=== PATIENT | female | born 1970 | race Caucasian/White ===

== ENCOUNTER 2016-06-08 12:05 | Emergency (ER) | payer SELFPAY ==
--- NOTE | 2016-06-08 12:20 | DR.GENAD ---
HPI - PCP Primary Care Physician: aidan Valentine HPI Comment HPI Comment: PATIENT HAVE HISTORY OF CAD S/P CABG HERE WITH SUBSTERNAL CHEST PRESSURE NON RADIATING PAIN. SHE WAS AT THE COURT HOUSE DOING JURY DUTY WHEN PAIN STATED. PAIN ASSOCIATED WITH SOB. PAIN INTERMITTENT LASTING LESS THAN 5 MINUTES. ASPIRING GIVEN IN THE AMBULANCE. CURRENTLY NO CHEST PAIN. - Complaint/Symptoms Chief Complaint Doctors Comments: CHEST PAIN Chief Complaint:: patient stated she was at the court house for jury duty when she started having chest pains. Self Treatment fo Chief Complaint: ems gave asa - Nurses notes reviewed Nurses Notes Review: Yes - Source History Provided: Patient - Mode of Arrival Mode of Arrival: EMS - Timing Onset of Chief Complaint: 06/08/16 Came on: Suddenly - Duration Duration: Intermittent Duration: Minutes - Severity Severity: Moderate PMH - PMH Past Medical History: Yes Past Medical History: [place], Coronary Artery Disease, Hypertension, Dyslipidemia Past Surgical History: Yes Surgical History: , CABG/Valve Surgery, Ortho Surgery - Family History History of Family Medical Conditions: Yes Family Medical History: [place], Coronary Artery Disease, Hypertension - Social History Does patient currently use any type of tobacco product: Yes Have you used tobacco products in the last 12 months: Yes Type of Tobacco Use: Cigarettes How many years tobacco product used: 30 Does any household member use tobacco: No Alcohol Use: None Do you use any recreational Drugs:: Yes (thc) Lives With: Family Lives Where: Home - infectious screening In the last 2 months have you had wt loss of >10#?: NO Have you had fever, night sweats or hemotysis?: No Have you traveled outside the country in the last 6 months?: No Isolation: Standard ROS - Review of Systems Constitutional: No Symptoms Reported Eyes: No Symptoms Reported ENTM: No Symptoms Reported Respiratoy: No Symptoms Reported Cardiovascular: Chest Pain Gastrointestinal/Abdominal: No Symptoms Reported Genitourinary: No Symptoms Reported Neurological: No Symptoms Reported Musculoskeletal: No Symptoms Reported Integumentary: No Symptoms Reported Hematologic/Lymphatic: No Symptoms Reported Endocrine: No Symptoms Reported All Other Systems: Reviewed and Negative PE - Vital Signs Vitals: Temperature 98.7 F Pulse Rate 18 Respiratory Rate 16 Blood Pressure [Right Arm] 173/102 Blood Pressure 230/114 O2 Sat by Pulse Oximetry 100 - General Limitations: No Limitations General Appearance: Alert - Head Head Exam: Normal Inspection - Eyes Eye exam: Normal Appearance - ENT ENT Exam: Normal External Ear Exam External Ear Exam: Normal External Inspection TM/Canal Exam: Bilateral Normal Nose Exam: Normal Nose Exam Mouth Exam: Normal Inspection Throat Exam: Normal Inspection - Neck Neck Exam: Normal Inspection - Chest Chest Inspection: Symmetric Chest Wall Rise - Respiratory Respiratory Exam: Normal Lung Sounds Bilat Respiratory Exam: Bilateral Rhonchi, Lower Rhonchi - Cardiovascular Cardiovascular Exam: Regular Rate, Normal Rhythm, Normal Heart Sounds - Abdominal Exam Abdominal Exam: Normal Bowel Sounds, Soft. negative: Tenderness - Extremities Extremities Exam: Normal Inspection - Back Back Exam: Normal Inspection - Neurologic Neurological Exam: Alert, Oriented X3 - Psychiatric Psychiatric Exam: Anxious - Skin Skin Exam: Normal Color MDM - Additional Information Additional Information Obtained From: Family - Differential Diagnosis Differential Diagnosis: CHEST PAIN, HYPERTENSION, CAD Course - Treatment Treatment: SEE ORDERS. - Education/Counseling Education/Counseling: Patient, Family, Education Educated On: Diagnosis ROR - Labs Reviewed Laboratory Results Reviewed?: Yes Result Diagrams: 06/09/16 04:05 06/08/16 12:29 - XRAY XRAY Interpreted by: Radiologist XRAY Findings: REPORT DISCUSS WITH PATIENT. - EKG Rhythm: NSR (EKG NOTED) - Diagnosis Discharge Problem: Chest pain Qualifiers: Chest pain type: precordial pain Qualified Code(s): R07.2 - Precordial pain Hypertension Qualifiers: Hypertension type: essential hypertension Qualified Code(s): I10 - Essential ( primary) hypertension CAD (coronary artery disease) Qualifiers: Coronary Disease-Associated Artery/Lesion type: unspecified vessel or lesion type [place] vs. transplanted heart: unspecified whether [place] or transplanted heart Associated angina: with unspecified angina Qualified Code(s): I25.119 - Atherosclerotic heart disease of [place]inez coronary artery with unspecified angina pectoris - Discharge Plan Disposition: ADMITTED INPATIENT Condition: Stable - Follow ups/Referrals - Instructions
[2016-06-08 12:42] LABS: BASOPHILS % (AUTO) 0.6 % (0.2-1.0); EOSINOPHILS # (AUTO) 0.2 x10^3/uL (0.0-0.2); EOSINOPHILS % (AUTO) 2.7 % (0.9-2.9); HEMATOCRIT 45.7 % (36.0-47.0); HEMOGLOBIN 15.5 g/dL (12.0-16.0); LYMPHOCYTES # (AUTO) 2.5 X10^3/uL (1.3-2.9); LYMPHOCYTES % (AUTO) 34.8 % (21.0-51.0); MEAN CORPUSCULAR HEMOGLOBIN 31.2 pg (27.0-34.0); MEAN CORPUSCULAR HGB CONC 33.8 g/dL (33.0-35.0); MEAN CORPUSCULAR VOLUME 92.2 fL (80.0-100.0); MEAN PLATELET VOLUME 7.9 fL (7.4-11.0); MONOCYTES # (AUTO) 0.8 x10^3/uL (0.3-0.8); NEUTROPHILS # (AUTO) 3.6 x10^3/uL (2.2-4.8); NEUTROPHILS % (AUTO) 50.9 % (42.0-75.0); PLATELET COUNT 278 X10^3/uL (150.0-450.0); RED BLOOD COUNT 4.96 X10^6/uL (3.5-5.4); RED CELL DISTRIBUTION WIDTH 14.1 % (11.6-16.5); WHITE BLOOD COUNT 7.1 X10^3/uL (3.6-10.0)
[2016-06-08 12:54] LABS: BLOOD UREA NITROGEN 10 mg/dL (7-18); CALCIUM 8.9 mg/dL (8.5-10.1); CARBON DIOXIDE 25.7 mmol/L (21-32); CHLORIDE 103 mmol/L (98-107); GLUCOSE 72 mg/dL (65-99); SODIUM 138 mmol/L (136-145); TROPONIN I < 0.02 ng/mL (0-1.5); eGFR BLACK RACES > 60 (>60); eGFR NON BLACK RACES > 60 (>60)
[2016-06-08 12:58] LABS: ALANINE AMINOTRANSFERASE 27 Units/L (12-78); ALBUMIN 3.9 g/dL (3.4-5.0); ALKALINE PHOSPHATASE 87 Units/L (46-116); ASPARTATE AMINO TRANSFERASE 32 Units/L (15-37); CKMB % 1.2 % (<4); CREATINE KINASE 197 Units/L (26-192); CREATINE KINASE MB 2.4 ng/mL (0-4.0); MAGNESIUM 1.9 mg/dL (1.7-2.9)
[2016-06-08] MEDS ORDERED: TOPROL XL PO SCH (13:00)
--- NOTE | 2016-06-08 13:06 | RAD ---
HISTORY: Chest pain and back pain Study: Single-view chest Comparison: December 05, 2015 Findings: Prior sternotomy. The trachea is midline. The cardiac silhouette is unremarkable. The lungs are cl ear without focal mass or consolidation. There is no effusion or pneumothorax. The bony thorax is grossly unremarkable. IMPRESSION: No acute cardiopulmonary disease. Reported By:
[2016-06-08 13:16] LABS: D DIMER 744 ng/mL (0-400)
[2016-06-08] MEDS ORDERED: MORPHINE SULFATE INJ 2 MG IVP PRN (13:53)
[2016-06-08] MEDS ORDERED: NITROSTAT SL PRN (13:53)
[2016-06-08] MEDS ORDERED: ZOFRAN INJ 4 MG VIAL IVP PRN (13:58)
[2016-06-08] MEDS: COZAAR PO SCH (15:00)
[2016-06-08] MEDS: PEPCID 20 MG IV PREMIX* 20 MG/50 ML BAG IV SCH ×2 (16:32→20:37)
[2016-06-08] MEDS: NICODERM PATCH 21 MG/24 HR TD SCH (16:32)
[2016-06-08] MEDS: NS 1000 ML 1,000 ML IV SCH (16:32)
[2016-06-08] MEDS ORDERED: PREVNAR 13 IM ONE (17:12)
[2016-06-08 17:33] VITALS: BMI 23.9
[2016-06-08 19:21] LABS: CKMB % 1.2 % (<4); CREATINE KINASE 169 Units/L (26-192); TROPONIN I < 0.02 ng/mL (0-1.5)
[2016-06-09 01:50] LABS: CKMB % 1.1 % (<4); CREATINE KINASE 131 Units/L (26-192); CREATINE KINASE MB 1.4 ng/mL (0-4.0); TROPONIN I < 0.02 ng/mL (0-1.5)
[2016-06-09] MEDS: NS 1000 ML 1,000 ML IV SCH (03:26)
[2016-06-09 05:24] LABS: BASOPHILS % (AUTO) 0.4 % (0.2-1.0); EOSINOPHILS # (AUTO) 0.3 x10^3/uL (0.0-0.2); EOSINOPHILS % (AUTO) 4.1 % (0.9-2.9); HEMATOCRIT 41.6 % (36.0-47.0); LYMPHOCYTES # (AUTO) 3.1 X10^3/uL (1.3-2.9); LYMPHOCYTES % (AUTO) 48.1 % (21.0-51.0); MEAN CORPUSCULAR HEMOGLOBIN 30.6 pg (27.0-34.0); MEAN CORPUSCULAR HGB CONC 33.6 g/dL (33.0-35.0); MEAN CORPUSCULAR VOLUME 91.2 fL (80.0-100.0); MEAN PLATELET VOLUME 8.2 fL (7.4-11.0); MONOCYTES # (AUTO) 0.6 x10^3/uL (0.3-0.8); MONOCYTES % (AUTO) 9.8 % (0.0-13.0); NEUTROPHILS # (AUTO) 2.4 x10^3/uL (2.2-4.8); NEUTROPHILS % (AUTO) 37.6 % (42.0-75.0); PLATELET COUNT 247 X10^3/uL (150.0-450.0); RED BLOOD COUNT 4.56 X10^6/uL (3.5-5.4); WHITE BLOOD COUNT 6.3 X10^3/uL (3.6-10.0)
[2016-06-09 05:34] LABS: ALANINE AMINOTRANSFERASE 22 Units/L (12-78); ALBUMIN 3.1 g/dL (3.4-5.0); ALKALINE PHOSPHATASE 66 Units/L (46-116); ASPARTATE AMINO TRANSFERASE 22 Units/L (15-37); BLOOD UREA NITROGEN 9 mg/dL (7-18); CALCIUM 8.2 mg/dL (8.5-10.1); CARBON DIOXIDE 22.2 mmol/L (21-32); CHLORIDE 109 mmol/L (98-107); CHOLESTEROL 253 mg/dL (0-200); COR CA(FOR HYPOALB) 8.9 mg/dL (8.5-10.1); CREATININE 0.81 mg/dL (0.55-1.02); GLUCOSE 79 mg/dL (65-99); HDL CHOLESTEROL 42 mg/dL (40-60); SODIUM 142 mmol/L (136-145); TOTAL PROTEIN 6.5 g/dL (6.4-8.2); TRIGLYCERIDES 42 mg/dL (0-150); eGFR BLACK RACES > 60 (>60); eGFR NON BLACK RACES > 60 (>60)
[2016-06-09] MEDS ORDERED: POTASSIUM CHLORIDE LIQ 20 MEQ UDC PO PRN (06:37)
[2016-06-09] MEDS ORDERED: K-DUR TAB 20 MEQ PO PRN (06:37)
[2016-06-09] MEDS ORDERED: K-LYTE EFFERVESCENT PO PRN (06:37)
[2016-06-09] MEDS ORDERED: K-RIDER 10 MEQ/NS 100 ML 10 MEQ/100 ML BAG IV PRN (06:37)
[2016-06-09] MEDS: NICODERM PATCH 21 MG/24 HR TD SCH (08:17)
[2016-06-09] MEDS: COZAAR PO SCH (08:17)
[2016-06-09] MEDS: PEPCID 20 MG IV PREMIX* 20 MG/50 ML BAG IV SCH (08:18)
[2016-06-09] MEDS ORDERED: [UNRECOGNIZED DRUG - OTHER] PO SCH (09:00)
[2016-06-09] MEDS ORDERED: LOPRESSOR TAB 50 MG PO SCH (09:00)
[2016-06-09] MEDS ORDERED: ASPIRIN PO SCH (09:00)
[2016-06-09] MEDS ORDERED: TOPROL XL PO SCH (09:00)
[2016-06-09] MEDS ORDERED: COZAAR PO SCH (09:00)
[2016-06-09] MEDS ORDERED: FLONASE NASAL SPRAY ENOSTRIL SCH (10:00)
[2016-06-09 10:35] VITALS: BP 183/86
[2016-06-09] MEDS ORDERED: PREVNAR 13 IM ONE (10:49)
== END 2016-06-09 11:00 | disposition home or self-care (01) ==
LOC: ER 12:05 → MED/SURG 14:15
PROVIDERS: ADMIT Obstetrics & Gynecology Obstetrics; ATTEND Obstetrics & Gynecology Obstetrics
PROC: 3E0234Z Introduction of Serum, Toxoid and Vaccine into Muscle, Percutaneous Approach (ICD-10-PCS; principal; 2016-06-09)
DX: R07.89 Other chest pain (principal); I25.119 Atherosclerotic heart disease of native coronary artery with unspecified angina pectoris; I10 Essential (primary) hypertension; R06.02 Shortness of breath; R07.2 Precordial pain; M54.89 Other dorsalgia; E78.01 Familial hypercholesterolemia; R94.4 Abnormal results of kidney function studies; Z23 Encounter for immunization
CPT/HCPCS: 36415; 71010; 80053; 80061; 82550; 82553; 83735; 84132; 84484; 85025; 85378; 85610; 85730; 93005; 93010; 94760; 96365; 99284; A4222; S0028; 90670; G0378

== ENCOUNTER 2016-12-13 21:00 | Emergency (ER) | payer SELFPAY ==
[2016-12-13] MEDS ORDERED: NITROSTAT SL ONE (21:03)
[2016-12-13] MEDS ORDERED: ASPIRIN PO STA (21:09)
[2016-12-13] MEDS: NITROSTAT SL PRN ×2 (21:10→21:15)
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
[2016-12-13 21:19] VITALS: BMI 24.7
[2016-12-13 21:21] LABS: BASOPHILS # (AUTO) 0.1 X10^3/uL (0.0-0.1); BASOPHILS % (AUTO) 0.6 % (0.2-1.0); EOSINOPHILS # (AUTO) 0.3 x10^3/uL (0.0-0.2); HEMATOCRIT 43.2 % (36.0-47.0); HEMOGLOBIN 14.9 g/dL (12.0-16.0); LYMPHOCYTES # (AUTO) 1.9 X10^3/uL (1.3-2.9); LYMPHOCYTES % (AUTO) 15.2 % (21.0-51.0); MEAN CORPUSCULAR HEMOGLOBIN 31.5 pg (27.0-34.0); MEAN CORPUSCULAR HGB CONC 34.4 g/dL (33.0-35.0); MEAN CORPUSCULAR VOLUME 91.5 fL (80.0-100.0); MEAN PLATELET VOLUME 7.5 fL (7.4-11.0); MONOCYTES # (AUTO) 0.8 x10^3/uL (0.3-0.8); MONOCYTES % (AUTO) 6.6 % (0.0-13.0); NEUTROPHILS # (AUTO) 9.7 x10^3/uL (2.2-4.8); NEUTROPHILS % (AUTO) 75.6 % (42.0-75.0); PLATELET COUNT 365 X10^3/uL (150.0-450.0); RED BLOOD COUNT 4.72 X10^6/uL (3.5-5.4); RED CELL DISTRIBUTION WIDTH 14.5 % (11.6-16.5); WHITE BLOOD COUNT 12.8 X10^3/uL (3.6-10.0)
[2016-12-13] MEDS ORDERED: ASPIRIN ONE (21:24)
[2016-12-13 21:51] LABS: BLOOD UREA NITROGEN 11 mg/dL (7-18); CALCIUM 9.7 mg/dL (8.5-10.1); CHLORIDE 97 mmol/L (98-107); COR NA(FOR HYPERGLY) 133 mmol/L (136-145); CREATININE 1.12 mg/dL (0.55-1.02); SODIUM 132 mmol/L (136-145); TROPONIN I < 0.02 ng/mL (0-1.5); eGFR BLACK RACES > 60 (>60); eGFR NON BLACK RACES 55 (>60)
[2016-12-13] MEDS ORDERED: NS 1000 ML 1,000 ML ONE (21:57)
[2016-12-13] MEDS ORDERED: NS 1000 ML 1,000 ML IV SCH (22:00)
--- NOTE | 2016-12-13 22:04 | RAD ---
Indication: Pain. Exam: Portable chest. Comparison: 06/08/2016 Findings: The heart is normal. The pulmonary vessels are normal. Postop changes are seen along the me diastinum and sternum. No consolidation or effusion is seen. Impression: Stable chest with no acute abnormality seen. Reported By:
[2016-12-13 22:05] LABS: ALANINE AMINOTRANSFERASE 21 Units/L (12-78); ALKALINE PHOSPHATASE 84 Units/L (46-116); ASPARTATE AMINO TRANSFERASE 20 Units/L (15-37); CREATINE KINASE 103 Units/L (26-192); MAGNESIUM 1.6 mg/dL (1.7-2.9); TOTAL PROTEIN 7.8 g/dL (6.4-8.2)
[2016-12-13] MEDS ORDERED: ATIVAN INJ 2 MG VIAL IVP ONE (22:24)
[2016-12-13] MEDS ORDERED: ATIVAN INJ 2 MG VIAL ONE (22:25)
[2016-12-13 22:31] LABS: CKMB % 1.2 % (<4); CREATINE KINASE MB 1.2 ng/mL (0-4.0)
[2016-12-13 22:55] VITALS: BP 149/89
== END 2016-12-13 22:50 | disposition home or self-care (01) ==
LOC: ER 21:00
DX: F43.0 Acute stress reaction (principal)
CPT/HCPCS: 36415; 71010; 80053; 82550; 82553; 83735; 84484; 85025; 85610; 93005; 93010; 96365; 96374; 99282; 99283; A4222; J2060

== ENCOUNTER 2016-12-14 10:25 | Emergency (ER) | payer SELFPAY ==
[2016-12-14] MEDS ORDERED: LOPRESSOR INJ 5 MG AMP ONE (10:29)
--- NOTE | 2016-12-14 10:36 | DR.CA ---
HPI - Time Seen Time seen: 10:35 - HPI Comment HPI Comment: PATIENT HERE IN FULL CARDIAC ARREST INTUBATED AND BEING RESCICITED ACCORDING TO ACLS PROTOCOL. PATIENT WAS IN V FIB AND WAS SHOCK TWICE. EPI GIVEN IV. IN ED, WEAK PULSE. ONE EPI GIVEN. WAS EVALUATED IN ED LAST NIGHT FOR CHEST PAIN. - Complaint Chief Complaint Doctor Comments: CARDIAC ARREST, [place] PATIENT WAS HAVING CHEST PAIN. - Reviewed Nurses Notes Review: Yes - Source History Provided: Significant Other, EMS - Mode of arrival Mode of Arrival: Stretcher - Context Onset: At Rest History R/T Cardiac Arrest: None Prehospital Care: Initial Rhythm: Ventricular Fibrillation Prehospital: Treatment: CPR, Intubation, Defribrillation, IV, Epinephrine Prehospital: Response to Treatment: Sustained Return of Pulse (AFTER SECOND DEFRIBILLATION.) - Associated Signs and Symptoms Associated Signs and Symptoms: Chest Pain PMH - PMH Past Medical History: [place], Coronary Artery Disease, Hypertension, Dyslipidemia Past Surgical History: Yes Surgical History: , CABG/Valve Surgery, Ortho Surgery - Family History Family Medical History: [place], Coronary Artery Disease, Hypertension - Social History Do you use any recreational Drugs:: Yes (thc) ROS - Review of Systems Constitutional: Diaphoresis, Other (UNRESPONSIVE) Eyes: Other (PUPILS REACTIVE SLOWLY.) ENTM: No Symptoms Reported (NONE REPORTED PER ) Respiratoy: Short of Breath (PER .), Other (UNRESPONSIVE. ) Cardiovascular: Chest Pain (PER ) Gastrointestinal/Abdominal: negative: Nausea, Vomiting Genitourinary: Other (ON URINE IN ED AFTER [facility]) Neurological: Weakness (PER .), Dizziness Musculoskeletal: Other (UNRESPONSIVE) Integumentary: Other (FACE SLIGHTLY CYANOTIC.) Hematologic/Lymphatic: No Symptoms Reported (PER ) Unable to Obtain Due To: Altered mental status (UNRESPONSIVE), Intubated PE - Vitals Vital Signs: Temp Pulse Pulse Resp BP BP Pulse Ox 12/14/16 12:25 125 H 26 H 132/87 100 12/14/16 12:20 121 H 28 H 132/88 100 12/14/16 12:15 118 H 28 H 133/89 100 12/14/16 12:10 123 H 32 H 121/77 100 12/14/16 12:05 123 H 28 H 129/74 100 12/14/16 12:00 128 H 27 H 145/74 100 12/14/16 11:55 123 H 26 H 142/90 100 12/14/16 11:50 116 H 27 H 111/77 100 12/14/16 11:45 108 H 28 H 101/69 100 12/14/16 11:35 106 H 30 H 101/63 100 12/14/16 11:30 133 H 28 H 144/67 100 12/14/16 11:25 133 H 29 H 139/83 100 12/14/16 11:10 118 H 28 H 123/86 100 12/14/16 11:05 103 H 12 113/81 98 12/14/16 10:51 103 H 12 122/66 100 12/14/16 10:45 109 H 12 114/87 100 12/14/16 10:36 213/140 12/14/16 10:32 97 F L 45 L 88 15 219/165 213/140 100 12/14/16 10:26 83 12 12/13/16 22:53 149/89 149/89 - General Limitations: Altered Mental Status (UNRESPONSIVE) General Appearance: Other (UNRESPONSIVE) - Head Head Exam: Normal Inspection - Eyes Eye exam: PERRL (PUPILS REACTIVE TO LIGHT.) Eyes: Pupils: Reactive - ENT ENT Exam: Normal External Ear Exam - Airway Airway: Intubated ET tube placement confirmed by: ETCO2 Gag: Absent (INTUBATED AND UNRESPONSIVE) - Neck Neck Exam: Trachea Midline - Chest Chest Inspection: Symmetric Chest Wall Rise (WITH VENTILATION) Expanded Chest Exam: Other (NONE) - Respiratory Ventilation: Assisted Respiratory Exam: Other (INTUBATED) Respiratory Exam: Bilateral Rhonchi, Upper Rhonchi, Lower Rhonchi - Cardiovascular Cardiovascular Exam: Tachycardia - Abdominal Exam Abdominal Exam: Normal Bowel Sounds - Extremities Extremities Exam: Normal Inspection - Neurologic Neurological Exam: Other (UNRESPONSIVE) - Skin Skin Exam: Erythema - Diagnosis Discharge Problem: Cardiopulmonary arrest, Cerebral edema Acute [place] Qualifiers: Myocardial infarction ST status: non-ST elevation myocardial infarction Qualified Code(s): I21.4 - Non-ST elevation (NSTEMI) myocardial infarction - Discharge Plan Disposition: XFER SHT-TRM HOSP Condition: Stable - Follow ups/Referrals Follow ups/Referrals: DENNIS PICKARD [Primary Care Provider] - 3 days - Instructions MDM - Addition Information Additional Information Obtained From: Family - Differential Diagnosis Differential Diagnosis: Cardiopulmonary Arrest, Dysrhythmia, Myocardial Infarction, Respiratory Failure. negative: Electrolyte Disorder (PULMONARY EDEMA) Course - Consultation Consultation Comments: PATIENT ACCEPTED FOR TRANSFER BY , [facility]. - Education/Counseling Education/Counseling: Family ROR - Labs Reviewed Laboratory Results Reviewed?: Yes Result Diagrams: 12/14/16 10:30 12/14/16 10:30 Laboratory: WBC 15.8 X10^3/uL (3.6-10.0) H 12/14/16 10:30 RBC 4.81 X10^6/uL (3.5-5.4) 12/14/16 10:30 Hgb 14.9 g/dL (12.0-16.0) 12/14/16 10:30 Hct 45.8 % (36.0-47.0) 12/14/16 10:30 MCV 95.3 fL (80.0-100.0) 12/14/16 10:30 MCH 31.1 pg (27.0-34.0) 12/14/16 10:30 MCHC 32.6 g/dL (33.0-35.0) L 12/14/16 10:30 RDW 14.3 % (11.6-16.5) 12/14/16 10:30 Plt Count 270 X10^3/uL (150.0-450.0) 12/14/16 10:30 MPV 7.8 fL (7.4-11.0) 12/14/16 10:30 Neut % 45.9 % (42.0-75.0) 12/14/16 10:30 Lymph % 45.5 % (21.0-51.0) 12/14/16 10:30 [place] % 6.2 % (0.0-13.0) 12/14/16 10:30 Eos % 2.0 % (0.9-2.9) 12/14/16 10:30 Baso % 0.4 % (0.2-1.0) 12/14/16 10:30 Neut # 7.3 x10^3/uL (2.2-4.8) H 12/14/16 10:30 Lymph # 7.2 X10^3/uL (1.3-2.9) H 12/14/16 10:30 [place] # 1.0 x10^3/uL (0.3-0.8) H 12/14/16 10:30 Eos # 0.3 x10^3/uL (0.0-0.2) H 12/14/16 10:30 Baso # 0.1 X10^3/uL (0.0-0.1) 12/14/16 10:30 Absolute Nucleated RBC 0.1 /100WBC 12/14/16 10:30 INR Target Range - 12/14/16 11:20 INR 1.03 (0.8-1.3) 12/14/16 11:20 PTT 27.8 SECONDS (22.9-36.5) 12/14/16 11:20 PTT Comment - 12/14/16 11:20 D-Dimer 1050 ng/mL (0-400) H* 12/14/16 10:30 Sample Site Rra 12/14/16 11:53 ABG pH 7.280 (7.35-7.45) L 12/14/16 11:53 ABG pCO2 33.0 mmHg (35.0-45.0) L 12/14/16 11:53 ABG pO2 449.0 mmHg (80.0-100.0) H 12/14/16 11:53 ABG HCO3 15.5 mmol/L (22-26) L* 12/14/16 11:53 ABG O2 Saturation 100.0 % (90-100) 12/14/16 11:53 ABG Base Excess -10.2 mmol/L (-2.0-2.0) L 12/14/16 11:53 Masood Test Pos 12/14/16 11:53 A-a Gradient 223.0 mmHg 12/14/16 11:53 FiO2 100.000 12/14/16 11:53 Blood Gas Comments [place] well cs 12/14/16 11:53 Sodium 131 mmol/L (136-145) L 12/14/16 10:30 Corrected Sodium 134 mmol/L (136-145) L 12/14/16 10:30 Potassium 3.0 mmol/L (3.5-5.1) L* 12/14/16 10:30 Chloride 96 mmol/L (98-107) L 12/14/16 10:30 Carbon Dioxide 16.5 mmol/L (21-32) L 12/14/16 10:30 BUN 10 mg/dL (7-18) 12/14/16 10:30 Creatinine 1.26 mg/dL (0.55-1.02) H 12/14/16 10:30 Est GFR (MDRD) Af Amer 59 (>60) 12/14/16 10:30 Est GFR (MDRD) Non-Af 48 (>60) L 12/14/16 10:30 Glucose 223 mg/dL (65-99) H 12/14/16 10:30 POC Glucose (mg/dL) 246 mg/dL (65-99) H 12/14/16 11:25 Calcium 8.5 mg/dL (8.5-10.1) 12/14/16 10:30 Corrected Calcium 9.2 mg/dL (8.5-10.1) 12/14/16 10:30 Total Bilirubin 0.70 mg/dL (0.2-1.0) 12/14/16 10:30 AST 213 Units/L (15-37) H 12/14/16 10:30 ALT 48 Units/L (12-78) 12/14/16 10:30 Alkaline Phosphatase 71 Units/L (46-116) 12/14/16 10:30 Creatine Kinase 1439 Units/L (26-192) H 12/14/16 10:30 CK-MB (CK-2) 288.3 ng/mL (0-4.0) H* 12/14/16 10:30 CK/CKMB % Calc 20.0 % (<4) 12/14/16 10:30 Troponin I 19.60 ng/mL (0-1.5) H* 12/14/16 10:30 B-Natriuretic Peptide 667 pg/mL (0-79) H* 12/14/16 10:30 Total Protein 6.3 g/dL (6.4-8.2) L 12/14/16 10:30 Albumin 3.1 g/dL (3.4-5.0) L 12/14/16 10:30 Globulin 3.2 g/dL (2.5-4.5) 12/14/16 10:30 Albumin/Globulin Ratio 1.0 Ratio (1.1-2.1) L 12/14/16 10:30 Specimen Type Clean catch urine 12/14/16 12:12 Urine Color Yellow (YELLOW) 12/14/16 12:12 Urine Appearance Hazy (CLEAR) 12/14/16 12:12 Urine pH 6.0 (5.0 - 8.0) 12/14/16 12:12 Ur Specific [place] 1.025 (1.000-1.030) 12/14/16 12:12 Urine Protein 4+ (NEGATIVE) 12/14/16 12:12 Urine Glucose (UA) 3+ (NEGATIVE) 12/14/16 12:12 Urine Ketones 1+ (NEGATIVE) 12/14/16 12:12 Urine Occult Blood 5+ (NEGATIVE) 12/14/16 12:12 Urine Nitrite Negative (NEGATIVE) 12/14/16 12:12 Urine Bilirubin Negative (NEGATIVE) 12/14/16 12:12 Urine Urobilinogen 1+ (NORMAL) 12/14/16 12:12 Ur Leukocyte Esterase Negative (NEGATIVE) 12/14/16 12:12 Urine RBC 20-25 /HPF (NEGATIVE) 12/14/16 12:12 Urine WBC 2-5 /HPF (NEGATIVE) 12/14/16 12:12 Ur Squamous Epith Cells Many /HPF (NEGATIVE) 12/14/16 12:12 Amorphous Sediment Trace /HPF (NEGATIVE) 12/14/16 12:12 Urine Bacteria Trace /HPF (NEGATIVE) 12/14/16 12:12 Hyaline Casts Moderate /LPF (NEGATIVE) 12/14/16 12:12 Ur Culture Indicated? No/not indicated 12/14/16 12:12 - XRAY XRAY Interpreted by: Radiologist XRAY Findings: REPORT NOTED - EKG Rhythm: ST (REPORT NOTED)
[2016-12-14 10:40] VITALS: BMI 37.8
[2016-12-14] MEDS ORDERED: NITROGLYCERIN IV PREMIX 50 MG 50 MG/250 ML BAG IV PRN (10:45)
[2016-12-14] MEDS ORDERED: ADRENALINE CHL INJ (ABBOJECT) IVP ONE (10:45)
[2016-12-14] MEDS ORDERED: LOPRESSOR INJ 5 MG AMP IVP ONE (10:45)
[2016-12-14 10:52] LABS: BASOPHILS # (AUTO) 0.1 X10^3/uL (0.0-0.1); BASOPHILS % (AUTO) 0.4 % (0.2-1.0); EOSINOPHILS # (AUTO) 0.3 x10^3/uL (0.0-0.2); HEMATOCRIT 45.8 % (36.0-47.0); HEMOGLOBIN 14.9 g/dL (12.0-16.0); LYMPHOCYTES # (AUTO) 7.2 X10^3/uL (1.3-2.9); LYMPHOCYTES % (AUTO) 45.5 % (21.0-51.0); MEAN CORPUSCULAR HEMOGLOBIN 31.1 pg (27.0-34.0); MEAN CORPUSCULAR HGB CONC 32.6 g/dL (33.0-35.0); MEAN CORPUSCULAR VOLUME 95.3 fL (80.0-100.0); MEAN PLATELET VOLUME 7.8 fL (7.4-11.0); MONOCYTES % (AUTO) 6.2 % (0.0-13.0); NEUTROPHILS # (AUTO) 7.3 x10^3/uL (2.2-4.8); NEUTROPHILS % (AUTO) 45.9 % (42.0-75.0); PLATELET COUNT 270 X10^3/uL (150.0-450.0); RED BLOOD COUNT 4.81 X10^6/uL (3.5-5.4); RED CELL DISTRIBUTION WIDTH 14.3 % (11.6-16.5); WHITE BLOOD COUNT 15.8 X10^3/uL (3.6-10.0)
--- NOTE | 2016-12-14 10:56 | RAD ---
Examination: Portable AP chest History: Cardiac arrest, ET tube placement Comparison reference: 12/13/2016 Findings: Continued normal heart size with clear lungs. Detail is limited by overlying surface artifa cts. Endotracheal tube is in mid trachea, well above the toni. There is no evidence for pleural flu id, pneumothorax. There is gaseous distention of the stomach. Impression: Interval intubation. Gaseous dilatation of the stomach is consistent with recent intubati on procedure. Reported By:
--- NOTE | 2016-12-14 11:19 | CT ---
CT HEAD WITHOUT CONTRAST CLINICAL HISTORY: 46-year-old female, unresponsive following cardiac arrest on mechanical ventilation . COMPARISON: None. TECHNIQUE: Multiple axial CT images were obtained from the skull base to the cranial vertex without t he administration of contrast. FINDINGS: Diffuse, subtle loss of mendes-white with mild pattern of edema producing mild sulcal effacem ent without evidence of herniation. No evidence of abnormal intra- or extra axial fluid collections o r midline shift. The ventricular system is normal in size and morphology. The basal cisterns are norm al in appearance. Significant calcific atherosclerotic plaque within the cavernous segments of the in ternal carotid arteries and distal vertebral arteries. The paranasal sinuses, mastoid air cells, and tympanic cavities are clear. Partially imaged oral endo tracheal tube. IMPRESSION: Diffuse, subtle loss of mendes-white differentiation with associated edema without evidence of herniati on at this time. Recommend MR brain for complete evaluation. Reported By:
[2016-12-14] MEDS ORDERED: DIPRIVAN PREMIX 1 GM IV 1,000 MG/100 ML VIAL ONE (11:20)
[2016-12-14] MEDS ORDERED: NS 1000 ML 1,000 ML ONE ×2 (11:22→11:42)
[2016-12-14 11:30] LABS: ALBUMIN 3.1 g/dL (3.4-5.0); CALCIUM 8.5 mg/dL (8.5-10.1); CARBON DIOXIDE 16.5 mmol/L (21-32); COR CA(FOR HYPOALB) 9.2 mg/dL (8.5-10.1); CREATININE 1.26 mg/dL (0.55-1.02); TOTAL PROTEIN 6.3 g/dL (6.4-8.2)
[2016-12-14] MEDS ORDERED: VERSED ONE ×2 (11:35→12:06)
[2016-12-14] MEDS ORDERED: VERSED 100 MG in NS 100 ML IV 80 ML IV PRN ×2 (11:35→11:37)
[2016-12-14 11:37] LABS: CREATINE KINASE MB 288.3 ng/mL (0-4.0)
[2016-12-14] MEDS ORDERED: VERSED IVP ONE ×2 (11:37→12:12)
[2016-12-14 11:38] LABS: TROPONIN I 19.6 ng/mL (0-1.5)
[2016-12-14] MEDS ORDERED: DIPRIVAN PREMIX 1 GM IV 1,000 MG/100 ML VIAL IV PRN (11:39)
[2016-12-14 11:55] LABS: ABG BASE EXCESS -10.2 mmol/L (-2.0-2.0)
[2016-12-14 11:56] LABS: ABG ALLEN TEST POS; ABG HCO3 15.5 mmol/L (22-26)
[2016-12-14] MEDS ORDERED: NS 1000 ML 1,000 ML IV ONE (12:00)
[2016-12-14 12:23] LABS: BILIRUBIN,URINE NEGATIVE (NEGATIVE); BLOOD/HEMOGLOBIN,URINE 5+ (NEGATIVE); GLUCOSE, URINE 3+ (NEGATIVE); KETONES,URINE 1+ (NEGATIVE); LEUKOCYTE ESTERASE ,URINE NEGATIVE (NEGATIVE); NITRITES,URINE NEGATIVE (NEGATIVE); PROTEIN,URINE 4+ (NEGATIVE); UROBILINOGEN,URINE 1+ (NORMAL)
[2016-12-14 12:31] LABS: APPEARANCE,URINE HAZY (CLEAR); BACTERIA,URINE TRACE /HPF (NEGATIVE); COLOR,URINE YELLOW (YELLOW); RBC,URINE 20-25 /HPF (NEGATIVE); SQUAMOUS EPITHELIAL CELL,UR MANY /HPF (NEGATIVE)
[2016-12-14 12:32] LABS: AMORPHOUS SEDIMENT,UR TRACE /HPF (NEGATIVE); HYALINE CASTS, URINE MODERATE /LPF (NEGATIVE)
[2016-12-14 12:33] VITALS: BP 132/87
[2016-12-14] MEDS ORDERED: NEXTERONE IV 150 MG PREMIX* 150 MG/100 ML BAG IV ONE (12:48)
[2016-12-14] MEDS ORDERED: CORDARONE INJ 150 MG VIAL IVP ONE (12:49)
[2016-12-14] MEDS ORDERED: NEXTERONE IV 360 MG PREMIX* 360 MG/200 ML BAG IV ONE (12:51)
[2016-12-14] MEDS ORDERED: NEXTERONE IV 360 MG PREMIX* 360 MG/200 ML BAG IV PRN (13:00)
== END 2016-12-14 13:11 | disposition short-term general hospital (02) ==
LOC: ER 10:25
PROC: 0T9B70Z Drainage of Bladder with Drainage Device, Via Natural or Artificial Opening (ICD-10-PCS; principal; 2016-12-14)
PROC: 0D9670Z Drainage of Stomach with Drainage Device, Via Natural or Artificial Opening (ICD-10-PCS; principal; 2016-12-14)
PROC: 5A12012 Performance of Cardiac Output, Single, Manual (ICD-10-PCS; principal; 2016-12-14)
DX: I46.9 Cardiac arrest, cause unspecified (principal); I21.4 Non-ST elevation (NSTEMI) myocardial infarction; Q04.8 Other specified congenital malformations of brain
CPT/HCPCS: 36415; 36600; 43753; 51702; 70450; 71010; 80053; 81001; 82550; 82553; 82803; 83880; 84484; 85025; 85378; 85610; 85730; 92950; 93005; 93010; 93041; 96365; 96367; 96374; 96375; 99284; 99291; 99292; J2250; J3490

== ENCOUNTER 2017-03-18 08:35 | Emergency (ER) | payer SELFPAY ==
[2017-03-18 08:39] VITALS: BP 107/69; BMI 24.7
--- NOTE | 2017-03-18 09:19 | DR.URIAD ---
HPI - Time Seen Time seen: 09:15 - PCP Primary Care Physician: PICKARD - Complaint Chief Complaint Doctors Comments: History as stated. Admits to cough and congestion for a few days. Denie smoking. Chief Complaint:: PT. HAS BEEN SICK WITH C/C/C X 3 WEEKS. PT. C/O DIARRHEA X 3 DAYS WELL BODY ACHES WHICH BEGAN TODAY. PT. HAS ALSO HAD N/V, FEVER. - Source History Provided: Patient - Mode of Arrival Mode of Arrival: Ambulatory - Timing Onset of Chief Complaint: 02/25/17 PMH - PMH Past Medical History: Yes Past Medical History: [place], Coronary Artery Disease, Hypertension, Dyslipidemia Past Surgical History: Yes Surgical History: Angioplasty/Stents, , CABG/Valve Surgery, Ortho Surgery - Family History History of Family Medical Conditions: Yes Family Medical History: [place], Coronary Artery Disease, Hypertension - Social History Does patient currently use any type of tobacco product: No Have you used tobacco products in the last 12 months: No Type of Tobacco Use: Cigarettes Does any household member use tobacco: No Alcohol Use: Occasionally Do you use any recreational Drugs:: No Lives With: Spouse Lives Where: Home - infectious screening In the last 2 months have you had wt loss of >10#?: NO Have you had fever, night sweats or hemotysis?: No Have you traveled outside the country in the last 6 months?: No Isolation: Standard ROS - Review of Systems Eyes: No Symptoms Reported ENTM: No Symptoms Reported Respiratoy: Moist Cough Cardiovascular: No Symptoms Reported Gastrointestinal/Abdominal: No Symptoms Reported Genitourinary: No Symptoms Reported Neurological: No Symptoms Reported Musculoskeletal: No Symptoms Reported Integumentary: No Symptoms Reported Hematologic/Lymphatic: No Symptoms Reported Endocrine: No Symptoms Reported Psychiatric: No Symptoms Reported All Other Systems: Reviewed and Negative PE - Vital Signs Vitals: Temperature 98.0 F Pulse Rate 88 Respiratory Rate 20 Blood Pressure [Right Arm] 132/87 Blood Pressure 107/69 O2 Sat by Pulse Oximetry 97 - General Limitations: No Limitations General Appearance: Alert, In No Apparent Distress - Head Head Exam: Normal Inspection, Atraumatic - Eyes Eye exam: Normal Appearance, PERRL, EOMI - ENT ENT Exam: Normal Exam External Ear Exam: Normal External Inspection TM/Canal Exam: Bilateral Normal Nose Exam: Normal Nose Exam Nasal Speculum Exam: Bilateral Normal Mouth Exam: Normal Inspection Throat Exam: Normal Inspection - Neck Neck Exam: Trachea Midline - Chest Chest Inspection: Normal Inspection - Respiratory Respiratory Exam: Prolonged Expiratory Phase Respiratory Exam: Bilateral Decreased Breath Sounds - Cardiovascular Cardiovascular Exam: Regular Rate, Normal Rhythm - Abdominal Exam Abdominal Exam: Normal Inspection, Normal Bowel Sounds Abdominal Tenderness: negative: RUQ, RLQ, LUQ, LLQ, Epigastrium, Suprapubic, Diffuse, Mild, Moderate, Severe, Other - Extremeties Extremities Exam: Normal Inspection, Full ROM - Back Back Exam: Normal Inspection - Neurologic Neurological Exam: Alert, Oriented X3, CN II-XII Intact - Psychiatric Psychiatric Exam: Normal Affect - Skin Skin Exam: Warm, Dry, Intact Course - Reevaluation 1st: Improved - Education/Counseling Education/Counseling: Patient Educated On: Treatment, Diagnosis, Needs for Follow Up ROR - Labs Reviewed Result Diagrams: 03/18/17 09:47 03/18/17 09:47 Laboratory: WBC 9.5 X10^3/uL (3.6-10.0) 03/18/17 09:47 RBC 4.84 X10^6/uL (3.5-5.4) 03/18/17 09:47 Hgb 14.4 g/dL (12.0-16.0) 03/18/17 09:47 Hct 42.4 % (36.0-47.0) 03/18/17 09:47 MCV 87.7 fL (80.0-100.0) 03/18/17 09:47 MCH 29.9 pg (27.0-34.0) 03/18/17 09:47 MCHC 34.1 g/dL (33.0-35.0) 03/18/17 09:47 RDW 17.0 % (11.6-16.5) H 03/18/17 09:47 Plt Count 522 X10^3/uL (150.0-450.0) H 03/18/17 09:47 MPV 7.9 fL (7.4-11.0) 03/18/17 09:47 Neut % 63.2 % (42.0-75.0) 03/18/17 09:47 Lymph % 21.8 % (21.0-51.0) 03/18/17 09:47 [place] % 10.6 % (0.0-13.0) 03/18/17 09:47 Eos % 3.8 % (0.9-2.9) H 03/18/17 09:47 Baso % 0.6 % (0.2-1.0) 03/18/17 09:47 Neut # 6.0 x10^3/uL (2.2-4.8) H 03/18/17 09:47 Lymph # 2.1 X10^3/uL (1.3-2.9) 03/18/17 09:47 [place] # 1.0 x10^3/uL (0.3-0.8) H 03/18/17 09:47 Eos # 0.4 x10^3/uL (0.0-0.2) H 03/18/17 09:47 Baso # 0.1 X10^3/uL (0.0-0.1) 03/18/17 09:47 Absolute Nucleated RBC 0.0 /100WBC 03/18/17 09:47 Sodium 134 mmol/L (136-145) L 03/18/17 09:47 Corrected Sodium TNP 03/18/17 09:47 Potassium 4.1 mmol/L (3.5-5.1) 03/18/17 09:47 Chloride 99 mmol/L (98-107) 03/18/17 09:47 Carbon Dioxide 21.0 mmol/L (21-32) 03/18/17 09:47 BUN 18 mg/dL (7-18) 03/18/17 09:47 Creatinine 1.71 mg/dL (0.55-1.02) H 03/18/17 09:47 Est GFR (MDRD) Af Amer 41 (>60) L 03/18/17 09:47 Est GFR (MDRD) Non-Af 34 (>60) L 03/18/17 09:47 Glucose 102 mg/dL (65-99) H 03/18/17 09:47 Calcium 9.8 mg/dL (8.5-10.1) 03/18/17 09:47 Corrected Calcium TNP 03/18/17 09:47 Total Bilirubin 0.90 mg/dL (0.2-1.0) 03/18/17 09:47 AST 24 Units/L (15-37) 03/18/17 09:47 ALT 26 Units/L (12-78) 03/18/17 09:47 Alkaline Phosphatase 136 Units/L (46-116) H 03/18/17 09:47 Total Protein 9.7 g/dL (6.4-8.2) H 03/18/17 09:47 Albumin 4.5 g/dL (3.4-5.0) 03/18/17 09:47 Globulin 5.2 g/dL (2.5-4.5) H 03/18/17 09:47 Albumin/Globulin Ratio 0.9 Ratio (1.1-2.1) L 03/18/17 09:47 Influenza Type A (PCR) Negative (NEGATIVE) 03/18/17 09:15 Influenza Type B (PCR) Negative (NEGATIVE) 03/18/17 09:15 - XRAY XRAY Interpreted by: Radiologist (chest: No cardiopulmonary disease) - Diagnosis Discharge Problem: Asthma Qualifiers: Asthma severity: moderate Asthma persistence: unspecified Asthma complication type: with acute exacerbation Qualified Code(s): J45.901 - Unspecified asthma with (acute) exacerbation - Discharge Plan Condition: Stable - Follow ups/Referrals Follow ups/Referrals: DENNIS PICKARD [Primary Care Provider] - 3 days - Instructions
[2017-03-18] MEDS ORDERED: DUONEB 0.5 MG/3 MG NEB ONE (09:34)
[2017-03-18] MEDS ORDERED: SOLU-Medrol 125 MG VIAL IVP ONE (09:34)
[2017-03-18] MEDS ORDERED: DUONEB 0.5 MG/3 MG ONE (09:47)
[2017-03-18 09:58] LABS: BASOPHILS # (AUTO) 0.1 X10^3/uL (0.0-0.1); BASOPHILS % (AUTO) 0.6 % (0.2-1.0); EOSINOPHILS # (AUTO) 0.4 x10^3/uL (0.0-0.2); EOSINOPHILS % (AUTO) 3.8 % (0.9-2.9); HEMATOCRIT 42.4 % (36.0-47.0); HEMOGLOBIN 14.4 g/dL (12.0-16.0); LYMPHOCYTES # (AUTO) 2.1 X10^3/uL (1.3-2.9); LYMPHOCYTES % (AUTO) 21.8 % (21.0-51.0); MEAN CORPUSCULAR HEMOGLOBIN 29.9 pg (27.0-34.0); MEAN CORPUSCULAR HGB CONC 34.1 g/dL (33.0-35.0); MEAN CORPUSCULAR VOLUME 87.7 fL (80.0-100.0); MEAN PLATELET VOLUME 7.9 fL (7.4-11.0); MONOCYTES % (AUTO) 10.6 % (0.0-13.0); NEUTROPHILS % (AUTO) 63.2 % (42.0-75.0); PLATELET COUNT 522 X10^3/uL (150.0-450.0); RED BLOOD COUNT 4.84 X10^6/uL (3.5-5.4); WHITE BLOOD COUNT 9.5 X10^3/uL (3.6-10.0)
--- NOTE | 2017-03-18 09:59 | RAD ---
HISTORY: Cough, dehydration Study: Single-view chest Comparison: December 14, 2016 Findings: Prior sternotomy. The trachea is midline. The cardiac silhouette is unremarkable. The lungs are patti ar without focal mass or consolidation. There is no effusion or pneumothorax. The bony thorax is gr ossly unremarkable. IMPRESSION: No acute cardiopulmonary disease. Reported By:
[2017-03-18] MEDS ORDERED: NS 1000 ML 1,000 ML ONE (10:00)
[2017-03-18] MEDS ORDERED: NS 1000 ML 1,000 ML IV SCH (10:00)
[2017-03-18] MEDS ORDERED: SOLU-Medrol 125 MG VIAL ONE (10:00)
[2017-03-18 10:10] LABS: ALANINE AMINOTRANSFERASE 26 Units/L (12-78); ALBUMIN 4.5 g/dL (3.4-5.0); ALKALINE PHOSPHATASE 136 Units/L (46-116); ASPARTATE AMINO TRANSFERASE 24 Units/L (15-37); BLOOD UREA NITROGEN 18 mg/dL (7-18); CALCIUM 9.8 mg/dL (8.5-10.1); CHLORIDE 99 mmol/L (98-107); CREATININE 1.71 mg/dL (0.55-1.02); SODIUM 134 mmol/L (136-145); TOTAL PROTEIN 9.7 g/dL (6.4-8.2); eGFR BLACK RACES 41 (>60); eGFR NON BLACK RACES 34 (>60)
== END 2017-03-18 10:49 | disposition home or self-care (01) ==
LOC: ER 09:07
DX: J45.901 Unspecified asthma with (acute) exacerbation (principal)
CPT/HCPCS: 36415; 71045; 80053; 85025; 87070; 87205; 87502; 94640; 96365; 96374; 99283; A4222; J2930; J7620

== ENCOUNTER 2018-10-15 11:41 | Inpatient (IN) ==
[~2018-10-15 11:41] MED LIST: NITROSTAT ONE
[2018-10-15 11:48] VITALS: BMI 30.1
[2018-10-15] MEDS ORDERED: NITROSTAT SL PRN ×2 (11:51→11:54)
[2018-10-15] MEDS ORDERED: ASPIRIN PO ONE (11:54)
--- NOTE | 2018-10-15 12:00 | DR.GENAD ---
HPI - PCP Primary Care Physician: nafisa - Complaint/Symptoms Chief Complaint Doctors Comments: Patient is complaining of xiphoid chest pain for the past 30 minutes getting progressively worst like something is setting on her chest. states she has had a by-pass 1012 and had two stents placed last year at [facility]. State she is a patient of Dr. García. She denies denies tobacco or alcohol usage. States the pain is 9 of 10. states she took her medicines and an aspirin today but she threw it all back up. States onset of pain while getting dressed after getting upset with spouse. Chief Complaint:: patient stated she started having chest pain about 30 minutes ago and she stated its like someone sitting on her chest. pt stated she had a triple bypass and a mi in the past. - Nurses notes reviewed Nurses Notes Review: Yes - Source History Provided: Patient - Mode of Arrival Mode of Arrival: Ambulatory - Timing Onset of Chief Complaint: 10/15/18 Came on: Suddenly - Duration Duration: Constant How lon Duration: Minutes - Location Location: xiphoid chest pain - Severity Severity: Moderate - Modifying Factors Worsens:: nothing Improves:: nothing PMH - PMH Past Medical History: Yes Past Medical History: Dyslipidemia, Hypertension, [place] Past Surgical History: Yes Surgical History: Angioplasty/Stents, Ortho Surgery - Family History History of Family Medical Conditions: Yes Family Medical History: [place], Coronary Artery Disease, Hypertension - Social History Does patient currently use any type of tobacco product: No Have you used tobacco products in the last 12 months: No Type of Tobacco Use: None Does any household member use tobacco: Yes Alcohol Use: None Do you use any recreational Drugs:: No Lives With: Family Lives Where: Home - infectious screening In the last 2 months have you had wt loss of >10#?: NO Have you had fever, night sweats or hemotysis?: No Have you traveled outside the country in the last 6 months?: No Isolation: Standard ROS - Review of Systems Constitutional: No Symptoms Reported Eyes: No Symptoms Reported ENTM: No Symptoms Reported. negative: See HPI, Ear Pain, Ear Discharge, Pulling on Ears, Hearing Loss, Nose Pain, Nose Discharge, Epistaxis, Nose Congestion, Mouth Pain, Mouth Swelling, Loose Teeth, Drooling, Throat Pain, Throat Swelling, Ear Foreign Body, Tooth/Dental Pain Respiratoy: No Symptoms Reported Cardiovascular: No Symptoms Reported, Chest Pain. negative: See HPI, Edema, Palpitations, Syncope, Cyanosis, Skin Mottling, Other Gastrointestinal/Abdominal: No Symptoms Reported, Nausea, Vomiting. negative: See HPI, Abdominal Pain, Constipation, Diarrhea, Food Intolerance, Other Genitourinary: No Symptoms Reported Neurological: No Symptoms Reported, Anxiety, Emotional Problems Musculoskeletal: No Symptoms Reported Integumentary: No Symptoms Reported. negative: See HPI, Change in Color, Change in Hair/Nails, Dryness, Lesions, Lumps, Rash, Itching, Wound, Bruises, Juandice, Other Hematologic/Lymphatic: No Symptoms Reported Endocrine: No Symptoms Reported Psychiatric: No Symptoms Reported, Anxiety. negative: See HPI, Depression, Hallucinations, Excessive crying, Suicidal, Other PE - General Limitations: No Limitations General Appearance: Alert, In Distress (moderate) - Head Head Exam: Normal Inspection, Atraumatic, Normocephalic - Eyes Eye exam: Normal Appearance, PERRL, EOMI. negative: Scleral Icterus, Conjunctival Injection, Nystagmus, Miosis, Mydrasis, Periorbital Swelling, Periorbital Tenderness, Other - ENT ENT Exam: Normal Exam, Normal Oropharynx, Normal External Ear Exam, Mucous Membranes Moist, TM's Normal Bilaterally External Ear Exam: Normal External Inspection TM/Canal Exam: Bilateral Normal Nose Exam: Normal Nose Exam Mouth Exam: Normal Inspection. negative: Drooling, Trismus, Lip Swelling, Tongue Elevation, Tongue Swelling, Laceration, Other Throat Exam: Normal Inspection. negative: Tonsillar Erythema, Tonsillomegaly, Tonsillar Exudate, R Peritonsillar Mass, L Peritonsillar Mass, Muffled Voice, Other - Neck Neck Exam: Normal Inspection, Full ROM, Trachea Midline. negative: Tenderness, Meningismus, Lymphadenopathy, Thyromegaly, Other - Chest Chest Inspection: Normal Inspection, Symmetric Chest Wall Rise. negative: Tenderness, Rash, Abscess, Other - Respiratory Respiratory Exam: Normal Lung Sounds Bilat Respiratory Exam: Bilateral Clear to Auscultation - Cardiovascular Cardiovascular Exam: Regular Rate, Normal Rhythm, Normal Heart Sounds, Systolic Murmur - Abdominal Exam Abdominal Exam: Normal Inspection, Normal Bowel Sounds, Soft, Tenderness (epigastric tenderness, mild). negative: Distention, Guarding, Rebound, Rigidity, Dimnished Bowel Sounds, Hyperactive Bowel Sounds, Hypoactive Bowel Sounds, Organomegaly, Trauma, Incision, Ascites, Mass, Bruit, Pulsatile Mass, Hernia, Other Abdominal Tenderness: Epigastrium, Mild - Extremities Extremities Exam: Normal Inspection, Full ROM, Normal Capillary Refill. negative: Tenderness, Edema, Joint Swelling, Calf Tenderness, Other - Back Back Exam: Normal Inspection, Full ROM. negative: Tenderness, (R) CVA Te nderness, (L) CVA Tenderness, Muscle Spasm, Paraspinal Tenderness, Vertebral Tenderness, Rashes, (R) Sciatic Notch Tenderness, (L) Sciatic Notch Tendern, (R) Straight Leg Raise, (L) Straight Leg Raise, Other - Neurologic Neurological Exam: Alert, Oriented X3, CN II-XII Intact, Normal Gait, Reflexes Normal - Psychiatric Psychiatric Exam: Normal Affect, Normal Mood - Skin Skin Exam: Warm, Dry, Intact, Normal Color. negative: Erythema (right foot with healing laceration 3 cm; no discharge) - Vital Signs Vitals: Temperature 98.6 F Pulse Rate 67 Respiratory Rate 16 Blood Pressure [Right Arm] 145/70 Blood Pressure 190/98 O2 Sat by Pulse Oximetry 98 Course - Reevaluation 1st: Improved - Consultation Called: 14:12 Call Returned: 14:12 (Dr. Alvarado to admit) - Education/Counseling Education/Counseling: Patient, Family Educated On: Treatment, Diagnosis, Needs for Follow Up ROR - Labs Reviewed Laboratory Results Reviewed?: Yes (All labs and x-ray results reviewed) Result Diagrams: 10/15/18 11:45 10/15/18 11:45 - XRAY XRAY Interpreted by: Radiologist (CXR: No acute cardiopulmonary changes) XRAY Findings: CTA chest: No evidence of pulmonary embolus. - EKG Rate: 82 [place]: Normal Rhythm: NSR Block: None Hypertrophy: LAE ST: Nonsp - Labs Reviewed Laboratory: WBC 8.1 X10^3/uL (3.6-10.0) 10/15/18 11:45 RBC 4.13 X10^6/uL (3.5-5.4) 10/15/18 11:45 Hgb 13.5 g/dL (12.0-16.0) 10/15/18 11:45 Hct 38.7 % (36.0-47.0) 10/15/18 11:45 MCV 93.8 fL (80.0-100.0) 10/15/18 11:45 MCH 32.8 pg (27.0-34.0) 10/15/18 11:45 MCHC 35.0 g/dL (33.0-35.0) 10/15/18 11:45 RDW 14.2 % (11.6-16.5) 10/15/18 11:45 Plt Count 412 X10^3/uL (150.0-450.0) 10/15/18 11:45 MPV 8.1 fL (7.4-11.0) 10/15/18 11:45 Neut % (Auto) 50.1 % (42.0-75.0) 10/15/18 11:45 Lymph % (Auto) 36.4 % (21.0-51.0) 10/15/18 11:45 [place] % (Auto) 8.8 % (0.0-13.0) 10/15/18 11:45 Eos % (Auto) 4.0 % (0.9-2.9) H 10/15/18 11:45 Baso % (Auto) 0.7 % (0.2-1.0) 10/15/18 11:45 Neut # (Auto) 4.1 x10^3/uL (2.2-4.8) 10/15/18 11:45 Lymph # (Auto) 3.0 X10^3/uL (1.3-2.9) H 10/15/18 11:45 [place] # (Auto) 0.7 x10^3/uL (0.3-0.8) 10/15/18 11:45 Eos # (Auto) 0.3 x10^3/uL (0.0-0.2) H 10/15/18 11:45 Baso # (Auto) 0.1 X10^3/uL (0.0-0.1) 10/15/18 11:45 Absolute Nucleated RBC 0.0 /100WBC 10/15/18 11:45 PT 12.2 SECONDS (11.8-14.3) 10/15/18 11:45 INR Target Range - 10/15/18 11:45 INR 0.94 (0.8-1.3) 10/15/18 11:45 APTT 24.2 SECONDS (22.9-36.5) 10/15/18 11:45 PTT Comment - 10/15/18 11:45 D-Dimer 611 ng/mL (0-400) H* 10/15/18 11:45 Sodium 139 mmol/L (136-145) 10/15/18 11:45 Corrected Sodium TNP 10/15/18 11:45 Potassium 3.9 mmol/L (3.5-5.1) 10/15/18 11:45 Chloride 104 mmol/L (98-107) 10/15/18 11:45 Carbon Dioxide 24.2 mmol/L (21-32) 10/15/18 11:45 BUN 6 mg/dL (7-18) L 10/15/18 11:45 Creatinine 0.94 mg/dL (0.55-1.02) 10/15/18 11:45 Est GFR (MDRD) Af Amer > 60 (>60) 10/15/18 11:45 Est GFR (MDRD) Non-Af > 60 (>60) 10/15/18 11:45 Glucose 94 mg/dL (65-99) 10/15/18 11:45 Calcium 8.2 mg/dL (8.5-10.1) L 10/15/18 11:45 Corrected Calcium TNP 10/15/18 11:45 Magnesium 1.9 mg/dL (1.7-2.9) 10/15/18 11:45 Total Bilirubin 0.40 mg/dL (0.2-1.0) 10/15/18 11:45 AST 20 Units/L (15-37) 10/15/18 11:45 ALT 26 Units/L (12-78) 10/15/18 11:45 Alkaline Phosphatase 100 Units/L (46-116) 10/15/18 11:45 Creatine Kinase 52 Units/L (26-192) 10/15/18 11:45 CK-MB (CK-2) < 1.0 ng/mL (0-4.0) 10/15/18 11:45 CK/CKMB % Calc 1.9 % (<4) 10/15/18 11:45 Troponin I < 0.02 ng/mL (0-1.5) 10/15/18 11:45 Total Protein 7.0 g/dL (6.4-8.2) 10/15/18 11:45 Albumin 3.4 g/dL (3.4-5.0) 10/15/18 11:45 Globulin 3.6 g/dL (2.5-4.5) 10/15/18 11:45 Albumin/Globulin Ratio 0.9 Ratio (1.1-2.1) L 10/15/18 11:45 Opioid - Opioid Risk Tool Total: 0 Total Score Risk Category: Low Risk - Diagnosis Discharge Problem: Chest pain, rule out acute myocardial infarction, Essential hypertension, Abnormal gall bladder diagnostic imaging CAD (coronary artery disease) Qualifiers: Coronary Disease-Associated Artery/Lesion type: bypass graft Associated angina: with unspecified angina - Discharge Plan Disposition: ADMITTED INPATIENT Condition: Stable
[2018-10-15 12:12] LABS: BASOPHILS # (AUTO) 0.1 X10^3/uL (0.0-0.1); BASOPHILS % (AUTO) 0.7 % (0.2-1.0); EOSINOPHILS # (AUTO) 0.3 x10^3/uL (0.0-0.2); HEMATOCRIT 38.7 % (36.0-47.0); HEMOGLOBIN 13.5 g/dL (12.0-16.0); LYMPHOCYTES % (AUTO) 36.4 % (21.0-51.0); MEAN CORPUSCULAR HEMOGLOBIN 32.8 pg (27.0-34.0); MEAN CORPUSCULAR VOLUME 93.8 fL (80.0-100.0); MEAN PLATELET VOLUME 8.1 fL (7.4-11.0); MONOCYTES # (AUTO) 0.7 x10^3/uL (0.3-0.8); MONOCYTES % (AUTO) 8.8 % (0.0-13.0); NEUTROPHILS # (AUTO) 4.1 x10^3/uL (2.2-4.8); NEUTROPHILS % (AUTO) 50.1 % (42.0-75.0); PLATELET COUNT 412 X10^3/uL (150.0-450.0); RED BLOOD COUNT 4.13 X10^6/uL (3.5-5.4); RED CELL DISTRIBUTION WIDTH 14.2 % (11.6-16.5); WHITE BLOOD COUNT 8.1 X10^3/uL (3.6-10.0)
[2018-10-15] MEDS ORDERED: MORPHINE SULFATE INJ 2 MG INJ ONE ×2 (12:21→12:56)
[2018-10-15] MEDS ORDERED: MORPHINE SULFATE INJ 2 MG INJ IVP ONE ×2 (12:29→12:52)
[2018-10-15 12:35] LABS: BLOOD UREA NITROGEN 6 mg/dL (7-18); CALCIUM 8.2 mg/dL (8.5-10.1); CARBON DIOXIDE 24.2 mmol/L (21-32); CHLORIDE 104 mmol/L (98-107); CREATININE 0.94 mg/dL (0.55-1.02); SODIUM 139 mmol/L (136-145); TROPONIN I < 0.02 ng/mL (0-1.5); eGFR NON BLACK RACES > 60 (>60)
[2018-10-15 12:36] LABS: ALANINE AMINOTRANSFERASE 26 Units/L (12-78); ALBUMIN 3.4 g/dL (3.4-5.0); ALKALINE PHOSPHATASE 100 Units/L (46-116); ASPARTATE AMINO TRANSFERASE 20 Units/L (15-37); CKMB % 1.9 % (<4); CREATINE KINASE 52 Units/L (26-192); CREATINE KINASE MB < 1.0 ng/mL (0-4.0); MAGNESIUM 1.9 mg/dL (1.7-2.9)
--- NOTE | 2018-10-15 12:53 | RAD ---
Examination: Portable AP chest History: Chest pain Comparison 03/18/2017 Findings: Continued normal heart size with sternal wires, clear lungs and pleural spaces. Impression: No change; no acute disease. Reported By:
--- NOTE | 2018-10-15 14:56 | CT ---
HISTORY: Chest pain and elevated D-dimer.. Study: CTA chest with contrast Comparison: PE protocol chest CT dated 10/05/2018 Technique: Multiple axial images of the chest were obtained from the thoracic inlet to the upper abdomen after the administration of IV contrast.. Sagittal and coronal MIP images were reconstructed. Automated exposure control (AEC) was utilized to adjust the MA and/or kV according to patient size. Findings: There are no filling defects within the pulmonary arterial branches to suggest pulmonary emboli. The main pulmonary artery is of normal caliber. The thoracic aorta is of normal caliber. Patient is status post CABG. Please note that the thoracic aorta and coronary vessels and coronary grafts are not opacified with contrast. There are no significantly enlarged axillary, mediastinal, or hilar lymph nodes by CT size criteria. There is mild cardiomegaly. No pericardial effusion. There is mild peribronchial interstitial thickening. The lungs are clear without suspicious pulmonary nodules or consolidation. No pleural effusion. No pneumothorax. There is a 2 cm polypoid soft tissue nodule within the gallbladder. This may represent a noncalcified gallstone or a gallbladder mass. There is reflux of contrast into the IVC and hepatic veins. This can be seen in setting of right-sided heart failure or tricuspid regurgitation.. Examination of the osseous structures demonstrates no acute osseous abnormality. IMPRESSION: 1. No evidence of pulmonary embolus. 2. Mild interstitial peribronchial wall thickening is noted. This is nonspecific however can be seen in the setting of a mild bronchitis. 3. Polypoid soft tissue density structure in the gallbladder. This may represent a gallstone however a gallbladder mass is not excluded. Correlation with gallbladder ultrasound is recommended on a nonemergent basis. 4. Status post CABG 5. Other findings as above Reported By:
[2018-10-15] MEDS ORDERED: NS 1000 ML 1,000 ML IV SCH (15:00)
[2018-10-15] MEDS ORDERED: NS 1000 ML 1,000 ML ONE (15:55)
[2018-10-15] MEDS: NS 1000 ML 1,000 ML IV SCH (16:01)
[2018-10-15] MEDS ORDERED: PREVNAR 13 IM ONE (18:23)
[2018-10-15 18:58] LABS: TROPONIN I 0.9 ng/mL (0-1.5)
[2018-10-15] MEDS ORDERED: NORCO 5/325 MG TAB PO PRN (20:24)
[2018-10-15] MEDS: LOPRESSOR TAB 25 MG PO SCH (21:00)
[2018-10-15] MEDS ORDERED: LIPITOR TAB 40 MG PO SCH (21:00)
[2018-10-15] MEDS: MAALOX or MYLANTA PO PRN (21:02)
[2018-10-15 21:27] LABS: CKMB % 15.4 % (<4)
[2018-10-15] MEDS ORDERED: ASPIRIN 81 MG CHEWTAB PO ONE ×2 (22:19→22:37)
[2018-10-15] MEDS ORDERED: HEPARIN SODIUM IN D5W 25,000 UNITS/500 ML BAG IV PRN (22:19)
[2018-10-15] MEDS ORDERED: BRILINTA PO ONE (22:33)
[2018-10-15] MEDS ORDERED: NITRO-BID OINT 2% UD (E.R. USE ONLY) ONE (22:33)
[2018-10-15] MEDS: BRILINTA PO SCH (22:57)
[2018-10-15] MEDS ORDERED: NITRO-BID OINT 2% Multi-Dose tube TD SCH (23:00)
[2018-10-16] MEDS ORDERED: HEPARIN SODIUM INJ 5000 UNITS ONE ×2 (00:22→07:54)
[2018-10-16] MEDS ORDERED: HEPARIN SODIUM INJ 5000 UNITS IVP ONE (00:24)
[2018-10-16] MEDS: NS 1000 ML 1,000 ML IV SCH (02:39)
[2018-10-16 04:00] LABS: BASOPHILS # (AUTO) 0.1 X10^3/uL (0.0-0.1); BASOPHILS % (AUTO) 0.6 % (0.2-1.0); EOSINOPHILS # (AUTO) 0.3 x10^3/uL (0.0-0.2); EOSINOPHILS % (AUTO) 2.7 % (0.9-2.9); HEMATOCRIT 36.4 % (36.0-47.0); HEMOGLOBIN 12.5 g/dL (12.0-16.0); LYMPHOCYTES # (AUTO) 2.4 X10^3/uL (1.3-2.9); LYMPHOCYTES % (AUTO) 23.1 % (21.0-51.0); MEAN CORPUSCULAR HEMOGLOBIN 32.3 pg (27.0-34.0); MEAN CORPUSCULAR HGB CONC 34.2 g/dL (33.0-35.0); MEAN CORPUSCULAR VOLUME 94.3 fL (80.0-100.0); MEAN PLATELET VOLUME 7.7 fL (7.4-11.0); MONOCYTES # (AUTO) 0.6 x10^3/uL (0.3-0.8); MONOCYTES % (AUTO) 6.1 % (0.0-13.0); NEUTROPHILS # (AUTO) 7.1 x10^3/uL (2.2-4.8); NEUTROPHILS % (AUTO) 67.5 % (42.0-75.0); PLATELET COUNT 318 X10^3/uL (150.0-450.0); RED BLOOD COUNT 3.86 X10^6/uL (3.5-5.4); RED CELL DISTRIBUTION WIDTH 14.5 % (11.6-16.5); WHITE BLOOD COUNT 10.5 X10^3/uL (3.6-10.0)
[2018-10-16 04:23] LABS: ALANINE AMINOTRANSFERASE 24 Units/L (12-78); ALBUMIN 3.1 g/dL (3.4-5.0); ALKALINE PHOSPHATASE 93 Units/L (46-116); ASPARTATE AMINO TRANSFERASE 76 Units/L (15-37); BLOOD UREA NITROGEN 6 mg/dL (7-18); CALCIUM 7.8 mg/dL (8.5-10.1); CHLORIDE 103 mmol/L (98-107); CHOL/HDL RATIO 3.3 (0.0-5.0); CHOLESTEROL 217 mg/dL (0-200); COR CA(FOR HYPOALB) 8.5 mg/dL (8.5-10.1); CREATININE 0.88 mg/dL (0.55-1.02); HDL CHOLESTEROL 66 mg/dL (40-60); SODIUM 136 mmol/L (136-145); TOTAL PROTEIN 6.4 g/dL (6.4-8.2); TRIGLYCERIDES 54 mg/dL (0-150); eGFR NON BLACK RACES > 60 (>60)
[2018-10-16] MEDS: MAALOX or MYLANTA PO PRN (05:06)
[2018-10-16 05:07] LABS: CKMB % 14.4 % (<4)
[2018-10-16 05:09] LABS: CREATINE KINASE MB 68.6 ng/mL (0-4.0); TROPONIN I 9.76 ng/mL (0-1.5)
[2018-10-16] MEDS ORDERED: NITRO-BID OINT 2% UD (E.R. USE ONLY) ONE (05:51)
[2018-10-16] MEDS ORDERED: NITRO-BID OINT 2% UD (E.R. USE ONLY) TD SCH (06:00)
[2018-10-16] MEDS: LOPRESSOR TAB 25 MG PO SCH (08:12)
[2018-10-16] MEDS ORDERED: NORVASC TAB 5 MG PO SCH (09:00)
[2018-10-16] MEDS ORDERED: COZAAR PO SCH (09:00)
[2018-10-16] MEDS ORDERED: BRILINTA PO SCH (09:00)
[2018-10-16] MEDS ORDERED: ASPIRIN EC 81 MG PO SCH (09:00)
[2018-10-16] MEDS ORDERED: MOBIC TAB 15 MG PO SCH (09:00)
[2018-10-16] MEDS: BRILINTA PO SCH (09:08)
--- NOTE | 2018-10-16 09:55 | DR.H&P ---
H&P - History & Physical for Day of: H&P Date: 10/15/18 - Chief Complaint Chief Complaint: CHEST PAIN, SOB - History of Present Illness History of Present Illness: 48 WF ER ADMISSION PRESENTING WITH CO CENTRAL CHEST PAIN WITH SUDDEN ONSET, ACCOMPANIED BY EPISODE OF N/V AND SOB. PT HAS PMH OF HTN, HYPERLIPIDEMIA, CAD WITH CABG ~4YEARS AGO - Past Medical History Past Medical History: Dyslipidemia, Hypertension, [place] - Past Surgical History Surgical History: Angioplasty/Stents, , CABG/Valve Surgery - Family History Family Medical History: Cancer, Hypertension - Social History Does patient currently use any type of tobacco product: No Have you used tobacco products in the last 12 months: No Type of Tobacco Use: Cigarettes How many years tobacco product used: 20 Does any household member use tobacco: Yes Alcohol Use: Occasionally Drug Use: Marijuana - Medications Home Medications: No Known Drug Allergies Allergy (Verified 10/15/18 11:42) CONTINUE taking the following medications meloxicam 15 mg PO DAILY 10/15/18 [History] naproxen 500 mg PO BID 10/15/18 [History] ticagrelor [Brilinta] 60 mg PO BID 10/15/18 [History] - Review of Systems Constitutional: No Symptoms Reported Eyes: No Symptoms Reported ENT: No Symptoms Reported Respiratory: Shortness of Breath, SOB with Excertion Cardiovascular: Chest Pain Gastrointestinal: Nausea, Vomiting Genitourinary: No Symptoms Reported Musculoskeletal: No Symptoms Reported Skin: No Symptoms Reported Neurological: No Symptoms Reported - Physical Exam Vital Signs: Temperature 99.0 F Pulse Rate [Right Brachial] 75 Pulse Rate 77 Respiratory Rate 28 Blood Pressure [Left Arm] 160/72 Blood Pressure [Right Arm] 163/87 Blood Pressure 163/94 O2 Sat by Pulse Oximetry 99 Oriented: Normal Eyes: Normal Ear: Normal Nose: Normal Throat: Normal Respiratory: Wheezes Throughout, RLL Diminished, LLL Diminished Cardiovascular: Normal. negative: Edema : Normal Auscultation: Bowel Sounds: Normal Palpation: Normal Tenderness: Normal Skin: Wound (OPEN WOUND TO TOP OF RIGHT FOOD) Musculoskeletal: Right, Ankle Psychiatric: Anxiety Affect: Anxious Speech Pattern: Clear, Appropriate - Assessment/Plan (1) Chest pain, rule out acute myocardial infarction Status: Acute Plan: ADMIT, SERIAL CE AND EKG. BP AND LIPID CONTROL. GENTLE IV HYDRATION, CXR ON ADMISSION. VERIFY HOME MEDICATION, ASPIRIN THERAPY, BRILINTA (2) Essential hypertension Status: Acute (3) CAD (coronary artery disease) Qualifiers: Coronary Disease-Associated Artery/Lesion type: bypass graft Associated angina: with unspecified angina Status: Chronic (4) Hypertension Qualifiers: Hypertension type: essential hypertension Qualified Code(s): I10 - Essential (primary) hypertension Status: Chronic - Allergies Allergies/Adverse Reactions: Allergies Allergy/AdvReac Type Severity Reaction Status Date / Time No Known Drug Allergies Allergy Verified 10/15/18 11:42
--- NOTE | 2018-10-16 10:03 | PCM.PROG ---
Progress Note - Progress Note for Day of Date of Exam: 10/16/18 - Subjective Subjective: 48 WF ER ADMISSION WITH CHEST PAIN, PT HAS PMH OF CAD WITH CABG ~2014 AND STENT PLACEMENT 2 YEARS AGO AT [facility]. PT CONTINUED WITH CP DURING THE NIGHT, 2ND TROPONIN 0.9. PT WAS MOVED TO ICU, STARTED ON HEPARIN DRIP. 3RD TROPONIN 9.76. DR AVALOS ARRANGED FOR TRANSFER TO [facility], [facility] FOR CARDIAC CATH. PT DENIES CHEST PAIN AT THIS TIME, PT RESPORT LOOSE STOOL THIS AM RELATES TO HER NERVES. BP STABLE AND PATIENT AWARE OF PLANS FOR TRANSFER - Past Medical Family Social History Past Med/Fam/Surg Hx: No changes since H&P Allergies: Allergies No Known Drug Allergies Allergy (Verified 10/15/18 11:42) - Review of Systems ROS: No change since H&P - Vital Signs and I&O's Vital Signs: Temperature 99.0 F Pulse Rate [Right Brachial] 75 Pulse Rate 77 Respiratory Rate 28 Blood Pressure [Left Arm] 160/72 Blood Pressure [Right Arm] 163/87 Blood Pressure 163/94 O2 Sat by Pulse Oximetry 99 Intake and Output: Intake & Output 10/13/18 10/14/18 10/15/18 10/16/18 11:59 11:59 11:59 11:59 Intake Total 2089 Balance 2089 - Physical Exam Oriented: Normal Eyes: Normal Ear: Normal Nose: Normal Throat: Normal Respiratory: Wheezes (MILD BILATER LOWER WHEEZES TO LUNG BASES) Cardiovascular: Normal. negative: Edema : Normal Auscultation: Bowel Sounds: Normal Tenderness: Normal Skin: Wound (OPEN WOUND TO TOP OF RIGHT FOOD) Musculoskeletal: Right, Ankle Psychiatric: Anxiety Affect: Anxious Speech Pattern: Clear, Appropriate - Laboratory and Diagnostics Result Diagrams: 10/16/18 03:34 10/16/18 03:34 Labs: Laboratory WBC 10.5 X10^3/uL (3.6-10.0) H 10/16/18 03:34 RBC 3.86 X10^6/uL (3.5-5.4) 10/16/18 03:34 Hgb 12.5 g/dL (12.0-16.0) 10/16/18 03:34 Hct 36.4 % (36.0-47.0) 10/16/18 03:34 MCV 94.3 fL (80.0-100.0) 10/16/18 03:34 MCH 32.3 pg (27.0-34.0) 10/16/18 03:34 MCHC 34.2 g/dL (33.0-35.0) 10/16/18 03:34 RDW 14.5 % (11.6-16.5) 10/16/18 03:34 Plt Count 318 X10^3/uL (150.0-450.0) 10/16/18 03:34 MPV 7.7 fL (7.4-11.0) 10/16/18 03:34 Neut % (Auto) 67.5 % (42.0-75.0) 10/16/18 03:34 Lymph % (Auto) 23.1 % (21.0-51.0) 10/16/18 03:34 [place] % (Auto) 6.1 % (0.0-13.0) 10/16/18 03:34 Eos % (Auto) 2.7 % (0.9-2.9) 10/16/18 03:34 Baso % (Auto) 0.6 % (0.2-1.0) 10/16/18 03:34 Neut # (Auto) 7.1 x10^3/uL (2.2-4.8) H 10/16/18 03:34 Lymph # (Auto) 2.4 X10^3/uL (1.3-2.9) 10/16/18 03:34 [place] # (Auto) 0.6 x10^3/uL (0.3-0.8) 10/16/18 03:34 Eos # (Auto) 0.3 x10^3/uL (0.0-0.2) H 10/16/18 03:34 Baso # (Auto) 0.1 X10^3/uL (0.0-0.1) 10/16/18 03:34 Absolute Nucleated RBC 0.0 /100WBC 10/16/18 03:34 PT 12.2 SECONDS (11.8-14.3) 10/15/18 11:45 INR Target Range - 10/15/18 11:45 INR 0.94 (0.8-1.3) 10/15/18 11:45 APTT 56.1 SECONDS (22.9-36.5) H 10/16/18 06:25 PTT Comment - 10/16/18 06:25 D-Dimer 611 ng/mL (0-400) H* 10/15/18 11:45 Sodium 136 mmol/L (136-145) 10/16/18 03:34 Corrected Sodium TNP 10/16/18 03:34 Potassium 3.8 mmol/L (3.5-5.1) 10/16/18 03:34 Chloride 103 mmol/L (98-107) 10/16/18 03:34 Carbon Dioxide 22.0 mmol/L (21-32) 10/16/18 03:34 BUN 6 mg/dL (7-18) L 10/16/18 03:34 Creatinine 0.88 mg/dL (0.55-1.02) 10/16/18 03:34 Est GFR (MDRD) Af Amer > 60 (>60) 10/16/18 03:34 Est GFR (MDRD) Non-Af > 60 (>60) 10/16/18 03:34 Glucose 94 mg/dL (65-99) 10/16/18 03:34 Calcium 7.8 mg/dL (8.5-10.1) L 10/16/18 03:34 Corrected Calcium 8.5 mg/dL (8.5-10.1) 10/16/18 03:34 Magnesium 1.9 mg/dL (1.7-2.9) 10/15/18 11:45 Total Bilirubin 1.10 mg/dL (0.2-1.0) H 10/16/18 03:34 AST 76 Units/L (15-37) H 10/16/18 03:34 ALT 24 Units/L (12-78) 10/16/18 03:34 Alkaline Phosphatase 93 Units/L (46-116) 10/16/18 03:34 Creatine Kinase 476 Units/L (26-192) H 10/16/18 03:34 CK-MB (CK-2) 68.6 ng/mL (0-4.0) H* 10/16/18 03:34 CK/CKMB % Calc 14.4 % (<4) 10/16/18 03:34 Troponin I 9.76 ng/mL (0-1.5) H* 10/16/18 03:34 Total Protein 6.4 g/dL (6.4-8.2) 10/16/18 03:34 Albumin 3.1 g/dL (3.4-5.0) L 10/16/18 03:34 Globulin 3.3 g/dL (2.5-4.5) 10/16/18 03:34 Albumin/Globulin Ratio 0.9 Ratio (1.1-2.1) L 10/16/18 03:34 Triglycerides 54 mg/dL (0-150) 10/16/18 03:34 Cholesterol 217 mg/dL (0-200) H 10/16/18 03:34 LDL Cholesterol, Calc 140 mg/dL (0-100) H 10/16/18 03:34 HDL Cholesterol 66 mg/dL (40-60) H 10/16/18 03:34 Cholesterol/HDL Ratio 3.3 (0.0-5.0) 10/16/18 03:34 - Plan (1) Chest pain, rule out acute myocardial infarction Status: Acute Plan: SERIAL CE AND EKG ON ADMISSION. BP AND LIPID CONTROL. GENTLE IV HYDRATION, CXR ON ADMISSION. VERIFY HOME MEDICATION, [facility]AP[facility], [place]. PLANS FOR TRANSFER TO [facility] FOR CARIDAC EVALUATION (2) Essential hypertension Status: Acute (3) CAD (coronary artery disease) Status: Chronic Qualifiers: Coronary Disease-Associated Artery/Lesion type: bypass graft Associated angina: with unspecified angina (4) Hypertension Status: Chronic Qualifiers: Hypertension type: essential hypertension Qualified Code(s): I10 - Essential (primary) hypertension
[2018-10-16 11:37] VITALS: BP 188/84
[2018-10-16] MEDS ORDERED: ASPIRIN ONE (11:40)
[2018-10-16 11:45] LABS: CKMB % 11.7 % (<4)
[2018-10-16 11:47] LABS: CREATINE KINASE MB 65.8 ng/mL (0-4.0); TROPONIN I 15.66 ng/mL (0-1.5)
== END 2018-10-16 11:20 | disposition short-term general hospital (02) | DRG 313 ==
LOC: MED/SURG 11:41 → ER 11:41 → MED/SURG 15:16 → ICU 10-16 00:05
PROVIDERS: ADMIT Internal Medicine; ATTEND Internal Medicine
DX: S90.921D Unspecified superficial injury of right foot, subsequent encounter; X58.XXXD Exposure to other specified factors, subsequent encounter; R07.89 Other chest pain; E78.5 Hyperlipidemia, unspecified; R94.39 Abnormal result of other cardiovascular function study; I25.810 Atherosclerosis of coronary artery bypass graft(s) without angina pectoris; R11.2 Nausea with vomiting, unspecified; I10 Essential (primary) hypertension; R79.1 Abnormal coagulation profile
CPT/HCPCS: 36415; 71010; 71045; 71275; 80053; 80061; 82550; 82553; 83735; 84484; 85025; 85378; 85610; 85730; 93005; 94760; 96365; 96374; 96375; 99284; A4216; A4222; 90670; G0378; J1644; J2270; J7030